=== PATIENT | female | born 1970 | race Caucasian/White ===

== ENCOUNTER → 2021-09-01 08:23 | Outpatient (BNVA) | payer MEDICAID, SELFPAY | PROVIDERS: PCP Nurse Practitioner Family; Visit Provider Nurse Practitioner | DX: D12.6 Benign neoplasm of colon, unspecified (principal); K22.70 Barrett's esophagus without dysplasia; K31.84 Gastroparesis; G40.909 Epilepsy, unspecified, not intractable, without status epilepticus | CPT/HCPCS: 99202 ==

== ENCOUNTER 2021-10-01 12:19 | Day surgery (SDC) | payer MEDICAID, SELFPAY ==
[2021-10-01 12:41] VITALS: BMI 20.3
[2021-10-01 12:51] VITALS: BP 112/66; PULSE 63; RESP 16; TEMP 37.3; O2SAT 99
[2021-10-01] MEDS: Lactated Ringers 1,000 ML 80 ML IVCONT (12:58)
--- NOTE | 2021-10-01 13:27 | HO.ANESPROP2 ---
HPI - Anesthesia Eval Consult details Narrative: 50 F for EGD and colonoscopy last seizure 2018 . occasional absence seizutes , televisit with neurologist 3 weeks ago . PMF Active Problems Active Problems: All Active Problems (Updated 10/01/21 @ 12:40 by Jimena Alford, KEN) Epilepsy (Acute) Asthma (Acute) Hypothyroid (Acute) Menopause (Acute) Chronic abdominal pain (Acute) Gastroparesis (Acute) Low back pain (Acute) GERD (gastroesophageal reflux disease) (Acute) Chronic idiopathic constipation (Acute) Tubular adenoma of colon (Acute) David's esophagus determined by endoscopy (Acute) Past Medical History Medical History (Updated 10/01/21 @ 12:40 by Jimena Alford RN) CVA (cerebral vascular accident) Gastroparesis Hypothyroid Peritoneal adhesions (postoperative) (postinfection) Seizure Torsion of bowel Functional capacity: independent ambulation Family History Family history of problems with anesthesia: No Surgical History Surgical History H/O total hysterectomy History of appendectomy History of section History of cholecystectomy History of colonoscopy with polypectomy History of endoscopy History of Problems with Anesthesia: No Social History Social History Patient Tobacco Use Status: Never used Tobacco Use of substances other than those prescribed or required for medical reasons: Yes Substance Use Frequency: Occasionally Are you DNR?: No Advance Directives: No Advance Directives Information Provided: Yes Meds Allergies Allergy/AdvReac Type Severity Reaction Status Date / Time metoclopramide [From Reglan] Allergy Intermediate Unknown Verified 10/01/21 12:37 Penicillins Allergy Intermediate HIVES Verified 10/01/21 12:37 tramadol [From Ultram] Allergy Intermediate Vomiting Verified 10/01/21 12:37 Active Medications: Current Medications Lactated Ringer's (Lr) 1,000 mls @ 80 mls/hr IVCONT .[id number] JUANCHO Last Admin: 10/01/21 12:58 Dose: 80 mls/hr Documented by: Home Medications Medication Instructions Recorded Confirmed Last Taken Type ibuprofen 200 mg capsule 400 mg PO Q8H 09/01/21 Unknown History lamotrigine 25 mg tablet 25 mg PO BEDTIME 09/01/21 Unknown History levothyroxine 75 mcg tablet 0 mcg PO 09/01/21 Unknown History Exam Exam Date and Time: October 01, 2021 1327 Height,Weight and Vital Signs: Height 5 ft 7 in Weight 58.967 kg Last Vital Signs Temp 99.1 F 10/01/21 12:51 Pulse 63 10/01/21 12:51 Resp 16 10/01/21 12:51 BP 112/66 10/01/21 12:51 Pulse Ox 99 10/01/21 12:51 Airway Mallampati Class: I Neck ROM: Full Loose/Missing/Broken Teeth: Yes (Chipped front teeth ) Assessment and Plan Assessment Anesthesia Assessment: Anesthesia Plan Discussed Final Anesthetic Review Family History of Problems with Anesthesia: No History of Problems with Anesthesia: No NPO: Yes ASA Class: II Patient Risk: Intermediate Anesthetic Plan Anesthetic Plan: MAC: Disposition: Standard PACU
--- NOTE | 2021-10-01 14:16 | MHC.SHP ---
Pre-Procedural Eval Section A Date of Service: 10/01/21 Section B Chief Complaint: benign neoplasm of colon,amaro's esophagus Details of Present Illness: dysphagia, hx of dilation in past Relevant Family History (Specify if Yes): No Relevant Social History: None Present Medications: see Short Stay Collaborative assessment Medical History: Significant History (CVA (cerebral vascular accident) Gastroparesis Hypothyroid Peritoneal adhesions (postoperative) (postinfection) Seizure Torsion of bowel) History of Previous Operations: Relevant previous surgery/procedure and date(s) (H/O total hysterectomy History of appendectomy History of section History of cholecystectomy History of colonoscopy with polypectomy History of endoscopy) Allergies: Allergies Allergy/AdvReac Type Severity Reaction Status Date / Time metoclopramide [From Reglan] Allergy Intermediate Unknown Verified 10/01/21 12:37 Penicillins Allergy Intermediate HIVES Verified 10/01/21 12:37 tramadol [From Ultram] Allergy Intermediate Vomiting Verified 10/01/21 12:37 Review of Systems Sugical H&P ROS: Negative: Constitution, Cardiovascular, Respiratory, Neurological, Psychiatric, Hem-Onc, Allergic/Immunologic, Gastrointestinal, Genitourinary, Musculoskeletal, Integumentary, Endocrine and Eyes/Ears/Nose/Throat Exam Surgical H&P Exam: Normal: HEENT, Normal: Heart, Normal: Lungs, Normal: Extremities, Normal: Abdomen, Normal: Skin and Normal: Neurological Plan Diagnosis/Plan: Unchanged I have reviewed the history and physical and performed a pertinent physical examination on my patient. No changes have occurred unless specified.
--- NOTE | 2021-10-01 14:17 | P.BOP_ITS ---
Brief Operative Note Date of Service: 10/01/21 Pre-op diagnosis: dysphagia, hx of colon polyps Post-op diagnosis: same Procedure: see op note Surgeon: Jacobo Mullen MD Anesthesia: MAC Was an Blood Bank Custodian used for this Procedure?: No Estimated blood loss (mL): 0 Condition: stable Disposition: PACU
--- NOTE | 2021-10-01 14:17 | P.OP_ITS ---
Operative Note Operative Note Date of Service: 10/01/21 Narrative: Operative Information Procedure Description: EGD, Colonoscopy FLEXIBLE TRANSORAL UPPER GASTROINTESTINAL ENDOSCOPY AND COLONOSCOPY PROCEDURE NOTE UPPER ENDOSCOPY Consent: Indications for the procedure and potential complications of bleeding, perforation, reaction to medications and missed diagnosis were discussed with the patient and informed consent was obtained. Instrument: Olympus GIF H 190 J mid size upper endoscope Monitoring: Vital signs and clinical assessment, continuous EKG monitoring, Pulse oximetry, Carbon Dioxide monitoring and blood pressure monitoring were done throughout the procedure. Procedure: The patient was placed in the left lateral decubitis position and pre-procedure medications were administered and a bite block was placed. The endoscope was inserted into the mouth and advanced under direct vision to the third part of duodenum. A careful inspection was made as the upper endoscope was withdrawn including a retroflexed examination of the proximal stomach; Findings and interventions are described below. Findings: Larynx:normal Esophagus: GE junction at 40 cm, diaphragm hiatus at 40 cm, bogginess of GEJ noted with some erythema, bx taken after the GEJ was dilated with ablloon to 16 mm with heme and small tear noted. Proximal esophagus also dilated to about 14 mm, no tear seen. Stomach:Streaky erythema with flecks of blood. Biopsies were obtained. Grade 2 flap valve on retroflexed examination of the cardia. Duodenum: Normal bulb and descending duodenum, bx taken Intervention: Biopsies as noted above, balloon dilation of GEJ with small tear noted. COLONOSCOPY Instrument: Olympus variable stiffness pediatric scope 190L Colonoscopy Monitoring: Vital signs and clinical assessment, continuous EKG monitoring, Pulse oximetry, Carbon Dioxide monitoring and blood pressure monitoring were done throughout the procedure. Colon withdrawal time was 10 minutes. Procedure: The patient was placed in the left lateral decubitis position and pre-procedure medications were administered. After a digital rectal examination of the ano-rectum, the video colonoscope was inserted into the rectum and advanced through the colon to the cecum/TI. The colonoscope was slowly withdrawn in a retrograde panoramic fashion and the colon mucosa was carefully examined including a retroflexed view of the rectum. Findings and interventions are described below. Procedure Difficulty: easy Findings: Terminal Ileum-normal Cecum:normal Ascending Colon: normal Transverse Colon -normal Descending Colon:normal Sigmoid Colon: normal Rectum: Retroflexion with small internal hemorrhoids, grade I, 8-9 mm sessile polyp removed with forceps Anorectum - normal Colon preparation: [place] Bowel Preparation Scale Right colon; 3 Transverse colon: 3 Left colon; 3 (0 = Unprepared colon segment with mucosa not seen due to solid stool that cannot be cleared. 1 = Portion of mucosa of the colon segment seen, but other areas of the colon segment not well seen due to staining, residual stool and/or opaque liquid. 2 = Minor amount of residual staining, small fragments of stool and/or opaque liquid, but mucosa of colon segment seen well. 3 = Entire mucosa of colon segment seen well with no residual staining, small fragments of stool or opaque liquid) Impression and Post Procedure Diagnosis: Endoscopy Findings: esophagitis esophageal stricture gastritis Colonoscopy Findings: internal hemorrhoids polyp Plan: Await Pathology results Repeat Colonoscopy in 5-7 years due to hx of polyps or earlier if clinically indicated High fiber diet leaflet avoid straining at stool, epsom salts and sitz bath, anusol supps or cream cont with PPI Above findings were reviewed with the patient and relevant handouts were provided if indicated.
[2021-10-01 15:21] VITALS: BP 107/69; PULSE 83; RESP 14; TEMP 36.1; O2SAT 98
[2021-10-01 15:36] VITALS: BP 111/70; PULSE 63; RESP 16; TEMP 36.3; O2SAT 100
== END 2021-10-01 16:04 | disposition home or self-care (01) ==
PROVIDERS: PCP Physician Assistant Medical; Visit Provider Internal Medicine Gastroenterology
PROC: (CPT 45380; principal; 2021-10-01 13:40)
DX: Z12.11 Encounter for screening for malignant neoplasm of colon (principal); Z86.010 Personal history of colon polyps; K64.0 First degree hemorrhoids; K62.1 Rectal polyp; K59.00 Constipation, unspecified; K22.70 Barrett's esophagus without dysplasia; K22.2 Esophageal obstruction; K29.50 Unspecified chronic gastritis without bleeding; K20.80 Other esophagitis without bleeding; K21.9 Gastro-esophageal reflux disease without esophagitis; K44.9 Diaphragmatic hernia without obstruction or gangrene; K31.84 Gastroparesis; K66.0 Peritoneal adhesions (postprocedural) (postinfection); G40.909 Epilepsy, unspecified, not intractable, without status epilepticus; J45.909 Unspecified asthma, uncomplicated; E03.9 Hypothyroidism, unspecified; Z79.1 Long term (current) use of non-steroidal anti-inflammatories (NSAID); Z88.0 Allergy status to penicillin; Z79.899 Other long term (current) drug therapy; Z88.8 Allergy status to other drugs, medicaments and biological substances; Z90.49 Acquired absence of other specified parts of digestive tract; Z86.73 Personal history of transient ischemic attack (TIA), and cerebral infarction without residual deficits
CPT/HCPCS: 45380; 43249; 43239; 88305; 88342; C1726; J2250

== ENCOUNTER → 2021-11-20 11:06 | Outpatient (BNVA) | payer MEDICAID, SELFPAY | PROVIDERS: PCP Physician Assistant Medical; Referring Provider Physician Assistant Medical; Visit Provider Internal Medicine Gastroenterology | DX: K21.9 Gastro-esophageal reflux disease without esophagitis (principal); K22.70 Barrett's esophagus without dysplasia; G89.29 Other chronic pain; R10.9 Unspecified abdominal pain | CPT/HCPCS: 99212 ==

== ENCOUNTER → 2022-06-25 09:58 | Outpatient (BNVA) | payer MEDICAID, SELFPAY | PROVIDERS: PCP Physician Assistant Medical; Visit Provider Internal Medicine Gastroenterology | DX: R13.10 Dysphagia, unspecified (principal); K21.00 Gastro-esophageal reflux disease with esophagitis, without bleeding; K59.00 Constipation, unspecified; R10.10 Upper abdominal pain, unspecified | CPT/HCPCS: 99212 ==

== ENCOUNTER → 2023-04-04 12:50 | Outpatient (BNVA) | payer MEDICAID, SELFPAY | PROVIDERS: PCP Physician Assistant Medical; Visit Provider Internal Medicine Gastroenterology | DX: K21.9 Gastro-esophageal reflux disease without esophagitis (principal); R13.10 Dysphagia, unspecified | CPT/HCPCS: 99212 ==

== ENCOUNTER 2024-04-23 09:29 | Outpatient (AMB) | payer OTHER, SELFPAY ==
--- NOTE | 2024-04-23 09:32 | A.OFFVIS_ITS ---
Vital Signs 04/23/24 09:33 Height 5 ft 7 in Weight 132 lb 4.438 oz BMI 20.7 BP 103/56 L Blood Pressure Location Lt brachial Position Sitting Pulse 60 Intake Visit Reasons: Dysphagia Intake Note: Monserrat presents in the office as a follow up. CC: Denies trouble swallowing. She states that it happens very rarely She states that it feels like something or part of her throat gets stuck - it happens on both sides. It is a sharp intense pain and she will be unable to swallow. She will be unable to talk - it goes 1-2 swallows and then it will go away. The last time she states the left side of her face went numb. She feels is occurs more on the left side. Gas Or Water Meter Installer Required: No Allergies metoclopramide [From Reglan] Allergy (Intermediate, Verified 04/23/24 09:33) Unknown Penicillins Allergy (Intermediate, Verified 04/23/24 09:33) HIVES tramadol [From Ultram] Allergy (Intermediate, Verified 04/23/24 09:33) Vomiting HPI HPI Dysphagia: Details: 53 yr old f here for f/u RECAP: Hx of dysphagia ba swallow with pill held at GEJ She has not had an EGD for many years despite SSBE She says she has an extensive history of adhesions after her hysterectomy with revision surgeries and intestinal tortions. She has a hx of colon polyps, her last being about 6 years ago. I did EGD, colonoscopy 09/2021 Endoscopy Findings: esophagitis esophageal stricture gastritis Colonoscopy Findings: internal hemorrhoids polyp bx with chronic moderate inflammation at GEJ, hyperplastic polyp INTERIM: she has been having issues maybe 3-4 times a year usu in the morning if she yawns and turns her head at certain angle, she feels like something is stuck and she gets a sharp pain --puts her on the floor every time she swallows she gets the sharp pain, sometimes goes away with swallowing she gets pressure and numbness last attack was maybe 6 months she has not had treatment for pit tumor as too small? she has been told she has no seizure d/o, taken off meds she denies neck pain or stiffness bowel habit is normal acid reflux is bad, cant take lansoprazole as they are too big -she feels they made her stomach hurt more she has LUQ pain, has had adhesions in the past, like a pulling sensation she has noted some issues with swallowing, food, dilation helped in past EXAM: GENERAL: The patient is well developed and nontoxic. VITAL SIGNS:see workflow HEENT: Nonicteric sclerae, PERRLA, EOMI. Oropharynx clear. Moist mucous membranes. Conjunctivae appear well perfused. No thyroid mass. CHEST: Chest wall is nontender. HEART: Regular rate and rhythm without murmurs. LUNGS: Clear to auscultation bilaterally. ABDOMEN: Soft, positive bowel sounds, nontender, no organomegaly.no flank tenderness SKIN: No rash, no excessive bruising, petechiae, or purpura. NEUROLOGIC: Cranial nerves II-XII intact without motor/sensory deficit. a/P: 1/ dysphagia, getting worse, prob from PPI non compliance 2/ facial numbness attacks when turning neck, ?mechanical issues with neck 3/ LUQ pain, possibly from adhesions in the past PLAN: // try ODT lansoprazole 2/ EGD with balloon dilation 3/ MR c spine 4/ trial of levsin for LUQ pain PFSH Medical History (Updated 04/23/24 @ 10:11 by Jacobo Mullen MD) Hx of pituitary neoplasm Seizure Hypothyroid Gastroparesis CVA (cerebral vascular accident) Peritoneal adhesions (postoperative) (postinfection) Torsion of bowel Surgical History History of appendectomy History of section History of cholecystectomy H/O total hysterectomy History of endoscopy History of colonoscopy with polypectomy Family History Mother Breast cancer Father Lung cancer High cholesterol Heart problem Maternal Grandmother Pituitary tumor Social History Patient Tobacco Use Status: Never used Tobacco Physical Exam Vital Signs: Last Vital Signs Pulse 60 04/23/24 09:33 BP 103/56 L 04/23/24 09:33 BMI result Body Mass Index 20.7 Assessment & Plan Assessment & Plan (1) Neck pain: Code(s): M54.2 - Cervicalgia Category: Medical Plan: see above Orders: Orders MR cervical spine wo con Today M54.2 - Cervicalgia Medications: New lansoprazole 30 mg PO DAILY 30 tabs 1RF hyoscyamine sulfate 0.125 mg PO BID-QID PRN 30 tabs 1RF dyspepsia Coding Level of Care Code Est Pt Level 4 (72653) Diagnoses Neck pain M54.2
[2024-04-23 09:33] VITALS: BP 103/56; PULSE 60; BMI 20.7
== END 2024-04-23 10:18 | disposition home or self-care (01) ==
PROVIDERS: PCP Physician Assistant Medical; Visit Provider Internal Medicine Gastroenterology
DX: M54.2 Cervicalgia (principal)
CPT/HCPCS: 99214

== ENCOUNTER → 2024-04-23 09:29 | Outpatient (BNVA) | payer OTHER, SELFPAY | PROVIDERS: PCP Physician Assistant Medical; Visit Provider Internal Medicine Gastroenterology ==

== ENCOUNTER 2024-08-30 08:02 | Day surgery (SDC) | payer OTHER, SELFPAY ==
[2024-08-28 16:10] VITALS: BMI 20.7
[2024-08-29 09:46] VITALS: BMI 21.1
--- NOTE | 2024-08-29 10:40 | HO.ANESPROP2 ---
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 (Acute) Tubular adenoma of colon (Acute) Chronic idiopathic constipation (Acute) GERD (gastroesophageal reflux disease) (Acute) Low back pain (Acute) Gastroparesis (Acute) Chronic abdominal pain (Acute) Menopause (Acute) Hypothyroid (Acute) Asthma (Acute) Epilepsy (Acute) Past Medical History Medical History Low BP Bradycardia Neck pain Back pain History of epilepsy Hx of pituitary neoplasm Seizure Hypothyroid Gastroparesis CVA (cerebral vascular accident) (~2016) Peritoneal adhesions (postoperative) (postinfection) Torsion of bowel Family History Family History Mother Breast cancer Father Lung cancer High cholesterol Heart problem Maternal Grandmother Pituitary tumor Family history of problems with anesthesia: No Surgical History Surgical History Hx of exploratory laparotomy (~2016) History of loop electrical excision procedure (LEEP) (~2016) Hx of BSO (bilateral salpingo-oophorectomy) (~2016) History of appendectomy (~2016) History of section History of cholecystectomy (~2016) H/O total hysterectomy (~2017) History of endoscopy (10/01/21) History of colonoscopy with polypectomy History of Problems with Anesthesia: No Social History Social History Are you a primary career development associate to a significant other at home: No Do you presently have visiting nurse or other home services: No Patient Tobacco Use Status: Never used Tobacco Use of substances other than those prescribed or required for medical reasons: Yes Substance Use Frequency: Weekly Have you been hit, kicked, punched, or otherwise hurt by someone within the past year? If so, by whom?: No Are you DNR?: No Advance Directives: No (Has one, if available will bring DOS) Advance Directives Information Provided: Yes Advance Directives on File: No Recently lost weight without trying: No Nutrition Risks: Difficulty swallowing Patient : No FDLMP: hx hysterectomy Poor oral hygiene: No Meds Allergies Allergy/AdvReac Type Severity Reaction Status Date / Time Penicillins Allergy Intermediate HIVES Verified 08/30/24 09:00 tramadol [From Ultram] Allergy Intermediate Vomiting Verified 08/30/24 09:00 metoclopramide [From Reglan] AdvReac Intermediate Tardive Verified 08/30/24 09:00 Dyskinesia Home Medications ?Medication ?Instructions ?Recorded ?Confirmed ?Last Taken ?Type calcium carbonate (Tums Extra 300 mg PO BID 08/29/24 08/29/24 Unknown History Strength Smoothies) levothyroxine 75 mcg tablet 75 mcg PO BEDTIME 08/29/24 08/29/24 Unknown History (Synthroid) Exam Height,Weight and Vital Signs: Height 5 ft 7 in Weight 61.235 kg Assessment and Plan Assessment Anesthesia Assessment: Chart Reviewed Final Anesthetic Review Family History of Problems with Anesthesia: No History of Problems with Anesthesia: No Documented by User: Herrera Cruz MD 08/30/24 10:22 PMFSH Past Medical History Medical History Low BP Bradycardia Neck pain Back pain History of epilepsy Hx of pituitary neoplasm Seizure Hypothyroid Gastroparesis CVA (cerebral vascular accident) (~2015) Peritoneal adhesions (postoperative) (postinfection) Torsion of bowel Family History Family History Mother Breast cancer Father Lung cancer High cholesterol Heart problem Maternal Grandmother Pituitary tumor Surgical History Surgical History Hx of exploratory laparotomy (~2015) History of loop electrical excision procedure (LEEP) (~2016) Hx of BSO (bilateral salpingo-oophorectomy) (~2016) History of appendectomy (~2016) History of section History of cholecystectomy (~2016) H/O total hysterectomy (~2017) History of endoscopy (10/01/21) History of colonoscopy with polypectomy Social History Social History Are you a primary career development associate to a significant other at home: No Do you presently have visiting nurse or other home services: No Patient Tobacco Use Status: Never used Tobacco Use of substances other than those prescribed or required for medical reasons: Yes Substance Use Frequency: Weekly Have you been hit, kicked, punched, or otherwise hurt by someone within the past year? If so, by whom?: No Are you DNR?: No Advance Directives: No (Has one, if available will bring DOS) Advance Directives Information Provided: Yes Advance Directives on File: No Recently lost weight without trying: No Nutrition Risks: Difficulty swallowing Patient : No FDLMP: hx hysterectomy Poor oral hygiene: No Meds Allergies Allergy/AdvReac Type Severity Reaction Status Date / Time Penicillins Allergy Intermediate HIVES Verified 08/30/24 09:00 tramadol [From Ultram] Allergy Intermediate Vomiting Verified 08/30/24 09:00 metoclopramide [From Reglan] AdvReac Intermediate Tardive Verified 08/30/24 09:00 Dyskinesia Home Medications ?Medication ?Instructions ?Recorded ?Confirmed ?Last Taken ?Type calcium carbonate (Tums Extra 300 mg PO BID 08/29/24 08/29/24 Unknown History Strength Smoothies) levothyroxine 75 mcg tablet 75 mcg PO BEDTIME 08/29/24 08/29/24 Unknown History (Synthroid) Exam Airway Mallampati Class: I TM Dist: >3cm Neck ROM: Full Loose/Missing/Broken Teeth: No Heart: ok Lungs: ok Assessment and Plan Assessment Anesthesia Assessment: Anesthesia Plan Discussed Final Anesthetic Review NPO: Yes ASA Class: III Final Preanesthetic Review: No Changes in Pt Med Stat, Meds/Allgs Chart Reviewed, Consent Obtained/Reviewed and Anes Risks/Benef Reviewed Patient Risk: Intermediate Procedure Risk: Intermediate Anesthetic Plan Anesthetic Plan: Agree w/ Assess. and Plan and TIVA Disposition: Standard PACU
[2024-08-30] MEDS: Lactated Ringers 1,000 ML 100 ML IVCONT (09:04)
--- NOTE | 2024-08-30 09:36 | MHC.SHP ---
Pre-Procedural Eval Section A - 24 Hr Update-Section A only Date of Service: 08/30/24 Section B - Complete if H&P > 30 days Chief Complaint: dysphagia Relevant Family History (Specify if Yes): No Relevant Social History: None Present Medications: see Short Stay Collaborative assessment Medical History: Significant History (Hx of pituitary neoplasm Seizure Hypothyroid Gastroparesis CVA (cerebral vascular accident) Peritoneal adhesions (postoperative) (postinfection) Torsion of bowel) History of Previous Operations: Relevant previous surgery/procedure and date(s) (History of appendectomy History of section History of cholecystectomy H/O total hysterectomy History of endoscopy History of colonoscopy with polypectomy) Allergies: Allergies Allergy/AdvReac Type Severity Reaction Status Date / Time Penicillins Allergy Intermediate HIVES Verified 08/30/24 09:00 tramadol [From Ultram] Allergy Intermediate Vomiting Verified 08/30/24 09:00 metoclopramide [From Reglan] AdvReac Intermediate Tardive Verified 08/30/24 09:00 Dyskinesia Review of Systems Sugical H&P ROS: Negative: Constitution, Cardiovascular, Respiratory, Neurological, Psychiatric, Hem-Onc, Allergic/Immunologic, Gastrointestinal, Genitourinary, Musculoskeletal, Integumentary, Endocrine and Eyes/Ears/Nose/Throat Exam Surgical H&P Exam: Normal: HEENT, Normal: Heart, Normal: Lungs, Normal: Extremities, Normal: Abdomen, Normal: Skin and Normal: Neurological Plan Diagnosis/Plan: Unchanged I have reviewed the history and physical and performed a pertinent physical examination on my patient. No changes have occurred unless specified. Time Spent With Patient Time: Total time managing care of this patient today ____ minutes.
--- NOTE | 2024-08-30 10:46 | W.PM.OPN ---
Operative Note Operative Note Date of Service: 08/30/24 Narrative: Procedure Description: EGD Indication: dysphagia Anesthesia: MAC FLEXIBLE TRANSORAL UPPER GASTROINTESTINAL ENDOSCOPY UPPER ENDOSCOPY Consent: Indications for the procedure and potential complications of bleeding, perforation, reaction to medications and missed diagnosis were discussed with the patient and informed consent was obtained. Instrument: Olympus GIF H 190 J mid size upper endoscope Monitoring: Vital signs and clinical assessment, continuous EKG monitoring, Pulse oximetry, Carbon Dioxide monitoring and blood pressure monitoring were done throughout the procedure. Procedure: The patient was placed in the left lateral decubitis position and pre-procedure medications were administered and a bite block was placed. The endoscope was inserted into the mouth and advanced under direct vision to the third part of duodenum. A careful inspection was made as the upper endoscope was withdrawn including a retroflexed examination of the proximal stomach; Findings and interventions are described below. Findings: Larynx:normal Esophagus: GE junction at 42 cm, diaphragm hiatus at 44 cm, patchy erythema, bx taken from distal and proximal esophagus, tight schatzki ring noted, dilated with balloon to 18 then 19 mm with superficial tear seen - 2 cm hiatal hernia noted--UES dilated to 18 mm with superficial tear noted Stomach: patchy erythema with bile acid refluxate noted . Biopsies were obtained. Grade 2 flap valve on retroflexed examination of the cardia. Duodenum: Normal bulb and descending duodenum, Intervention: Biopsies as noted above, balloon dilation Impression/Findings: gastritis and bile acid reflux schatzki ring hiatal hernia PLAN: check if taking PPI-if not needs to commence GERD precautions
[2024-08-30 10:53] VITALS: BP 114/68; PULSE 77; RESP 18; TEMP 37.1; O2SAT 96
[2024-08-30 11:08] VITALS: BP 107/49; PULSE 60; RESP 18; TEMP 37.5; O2SAT 99
[2024-08-30] MEDS: Ondansetron ODT 4 MG TAB.RAPDIS TRANSLINGU (11:55)
--- NOTE | 2024-08-30 11:58 | PC.NURSE ---
PATIENT FEELING A LITTLE DIZZY AND NOW NAUSEOUS POST UPPER ENDOSCOPY. OBTAINED AN ORDER FOR ZOFRAN AND GIVEN SL TO PATIENT.
--- NOTE | 2024-08-30 12:13 | PC.NURSE ---
PATIENT STATES FEELING MUCH BETTER AFTER ZOFRAN GIVEN. PATIENT ABLE TO STAND AND WALK WITH DIFFICULTY. STATES DIZZINESS MUCH BETTER. PATIENT DC'D HOME WITH HER SO.
== END 2024-08-30 12:15 | disposition home or self-care (01) ==
PROVIDERS: PCP Physician Assistant Medical; Visit Provider Internal Medicine Gastroenterology
PROC: (CPT 43249; principal; 2024-08-30 10:50)
DX: R13.10 Dysphagia, unspecified (principal); R20.0 Anesthesia of skin; K22.2 Esophageal obstruction; K44.9 Diaphragmatic hernia without obstruction or gangrene; K31.84 Gastroparesis; K66.0 Peritoneal adhesions (postprocedural) (postinfection); R10.12 Left upper quadrant pain; K29.60 Other gastritis without bleeding; R56.9 Unspecified convulsions; E03.9 Hypothyroidism, unspecified; Z79.899 Other long term (current) drug therapy; Z88.0 Allergy status to penicillin; Z88.8 Allergy status to other drugs, medicaments and biological substances; Z86.73 Personal history of transient ischemic attack (TIA), and cerebral infarction without residual deficits; Z98.890 Other specified postprocedural states
CPT/HCPCS: 43249; 43239; 88305; C1726; J2003; J2704

== ENCOUNTER → 2024-08-30 08:02 | Outpatient (BNV) | payer OTHER, SELFPAY | PROVIDERS: PCP Physician Assistant Medical; Visit Provider Internal Medicine Gastroenterology | DX: K22.2 Esophageal obstruction (principal); K29.70 Gastritis, unspecified, without bleeding; K21.9 Gastro-esophageal reflux disease without esophagitis | CPT/HCPCS: 43239; 43249 ==

== ENCOUNTER → 2024-11-12 10:42 | Outpatient (BNVA) | payer OTHER, SELFPAY | PROVIDERS: PCP Physician Assistant Medical; Visit Provider Internal Medicine Gastroenterology ==

== ENCOUNTER 2025-04-01 12:21 | Outpatient (AMB) | payer OTHER, SELFPAY ==
--- NOTE | 2025-04-01 12:40 | A.OFFVIS_ITS ---
Vital Signs 04/01/25 12:42 Height 5 ft 7 in Weight 136 lb BMI 21.3 BP 96/60 Blood Pressure Location Rt brachial Position Sitting Pulse 66 Pulse Source Pulse Oximeter Pulse Oximetry (%) 99 Oxygen Delivery Method Room Air Intake Visit Reasons: f/u dysphagia Intake Note: Est pt for mgmt of GERD, dysphagia, + David's. CC; C.O. adverse reaction to the lansoprazole. Pt states that, although it worked very well for controlling the GERD / David's, pt experienced severe diarrhea and was unable to leave her house if she took the medication. Pt is hoping for either an alternative or a way to manage the chronic, severe diarrhea type adverse reaction. Sand Operator Required: No Accompanied by: Self / Same As Patient Allergies Penicillins Allergy (Intermediate, Verified 04/01/25 12:41) HIVES tramadol (From Ultram) Allergy (Intermediate, Verified 04/01/25 12:41) Vomiting metoclopramide (From Reglan) Adverse Reaction (Intermediate, Verified 04/01/25 12:41) Tardive Dyskinesia HPI HPI f/u dysphagia: Details: 54 yr old f here for f/u RECAP: Hx of dysphagia ba swallow with pill held at [facility] She has not had an EGD for many years despite SSBE She says she has an extensive history of adhesions after her hysterectomy with revision surgeries and intestinal tortions. She has a hx of colon polyps, her last being about 6 years ago. I did EGD, colonoscopy 09/2021 Endoscopy Findings: esophagitis esophageal stricture gastritis Colonoscopy Findings: internal hemorrhoids polyp bx with chronic moderate inflammation at [facility], hyperplastic polyp EGD 09/02 Impression/Findings: gastritis and bile acid reflux schatzki ring hiatal hernia balloon dilation with tear of schatzki ring INTERIM: lansoprazole has been effective but gives her diarrhea she is otherwise well no n/v no abdominal pain appetite is good no swallowing issues EXAM: GENERAL: The patient is well developed and nontoxic. VITAL SIGNS:see workflow HEENT: Nonicteric sclerae, PERRLA, EOMI. Oropharynx clear. Moist mucous me mbranes. Conjunctivae appear well perfused. No thyroid mass. CHEST: Chest wall is nontender. HEART: Regular rate and rhythm without murmurs. LUNGS: Clear to auscultation bilaterally. ABDOMEN: Soft, positive bowel sounds, nontender, no organomegaly.no flank tenderness SKIN: No rash, no excessive bruising, petechiae, or purpura. NEUROLOGIC: Cranial nerves II-XII intact without motor/sensory deficit. a/P: 1/ dysphagia, has been better, but intolerant of lansoprazole PLAN: /1/ try dexilant 2/ EGD with balloon dilation prn 3/ she is having sinus congestion, waiting to see ENT [facility] Medical History Low BP Bradycardia Neck pain Back pain History of epilepsy Hx of pituitary neoplasm Seizure Hypothyroid Gastroparesis CVA (cerebral vascular accident) (~2016) Peritoneal adhesions (postoperative) (postinfection) Torsion of bowel Surgical History Hx of exploratory laparotomy (~2015) History of loop electrical excision procedure (LEEP) (~2015) Hx of BSO (bilateral salpingo-oophorectomy) (~2015) History of appendectomy (~2015) History of section History of cholecystectomy (~2015) H/O total hysterectomy (~2017) History of endoscopy (10/01/21) History of colonoscopy with polypectomy Family History Mother Breast cancer Father Lung cancer High cholesterol Heart problem Maternal Grandmother Pituitary tumor Social History Are you a primary direct care counselor to a significant other at home: No Do you presently have visiting nurse or other home services: No Patient Tobacco Use Status: Never used Tobacco Physical Exam Vital Signs: Last Vital Signs Pulse 66 04/01/25 12:42 BP 96/60 04/01/25 12:42 Pulse Ox 99 04/01/25 12:42 Oxygen Delivery Method Room Air 04/01/25 12:42 BMI result Body Mass Index 21.3 Assessment & Plan Assessment & Plan (1) Dysphagia: Code(s): R13.10 - Dysphagia, unspecified Category: Medical Plan: as above Medications: New dexlansoprazole (Dexilant) 30 mg PO DAILY 90 caps 2RF Coding Level of Care Code Est Pt Level 3 (65854) Diagnoses Dysphagia R13.10
[2025-04-01 12:42] VITALS: BP 96/60; PULSE 66; O2SAT 99; BMI 21.3
--- OUTSIDE RECORDS SUMMARY | 2025-04-01 13:43 | XMS_ITS | Data Portability ---
Author Organization [facility] Address [address] [address] Care Team Providers Care Partnership Development Manager Name Role Phone ANUM KAUR Primary Care Provider [phone] Assessment No assessment recorded. Plan of Treatment Reminders Order Date Submit Date Provider Last Modified By Organization Details Last Modified Time Details Appointments None recorded. Lab None recorded. Referral None recorded. Procedures None recorded. Surgeries None recorded. Imaging None recorded. Medication Orders Zofran 4 mg tablet 2015 016 ori [facility], [address] [place] [address], [address], 6 13:35:24 Reglan 10 mg tablet 2015 016 maribelli [facility], [address] [place] [address], [address], 6 13:35:24 Valium 10 mg tablet 2014 015 asya [facility], [address] [place] [address], [address], 6 14:29:09 belladonn a alkaloids -opium 16.2 mg-60 mg rectal supposito ry 2014 Quang rehman [facility], [address] [place] [address], [address], 6 13:35:23 Bactrim DS 800 mg-160 mg tablet 2014 015 asya [facility], [address] [place] [address], [address], 5 13:35:25 cyclobenz aprine 10 mg tablet 2014 Quang echavarria [address], [address], 5 14:41:07 Estrace 1 mg tablet 2014 Quang sky [address], [address], 5 13:35:25 Patient TargetsNo targets recorded. Patient InstructionsNo instructions recorded. Reason for Referral None Reported. Results Created Date Observation Date Name Description Value Unit Range Abnormal Flag Note LastModifiedBy Organization Detail LastModifiedTime 07/23/20 15 07/23/2015 surgi anshu patho logy study surgical specimens See Altaf ts ----- ----- ----- ----- ----- ----- ----- ----- ----- ----- ----- ----- ----- ----- ----- ----- ----- ----- -- RUN DATE: 07/30 [place] [address] PAGE 1 RUN TIME: 1105 Speci minh Alanisi ry RUN USER: VIJAY ARVIZU ----- ----- ----- ----- ----- ----- ----- ----- ----- ----- ----- ----- ----- ----- ----- ----- ----- ----- -- LAYLA NT: WU ARZOLA 598 LOC: [facility] U #: [id number] AGE/S X: 44/F ROOM: RE07/[address]: Tiffani hicks M.D., Tee balderas DOB: [birth year] BED: DIS: STATU S: DEP [facility] TLOC: ----- ----- ----- ----- ----- ----- ----- ----- ----- ----- ----- ----- ----- ----- ----- ----- ----- ----- -- SPEC #: [id number] RECD: 07/24 926 STATU S: SOUT REQ #: [id number] VERITO: 07/23- DR: Tiffani hicks M.D., [facility] ENTER ED: 07/24 929 SP TYPE: SURG OTHR DR: Alesha Chinchilla, Chang Logan ORDER ED: H&E, ARIANNE ROUTI NE, MULTI (5)/3 , SMALL (4), MMULT C TISSU ES: 1. Pelvi c NOS - LEFT PELVI C SIDEW ALL AND ANTER IOR BLADD ER FLAP 2. MISCE LLANE OUS - RIGHT UROSA CRAL 3. Pelvi c NOS - LEFT PELVI C RIM 4. APPEN SALVADOR FINAL DIAGN OSIS 1. Left pelvi c sidew all and anter ior bladd er flap - React brian lymph node and benig n fibro fatty tissu e; no endom etrio sis is ident ified 2. Right utero sacra l - Foci mandy tible with endom etrio sis, with hemor rhage , calci ficat ions, granu lomat ous histi ocyte react ion, and fibro sis 3. Left pelvi c rim - Benig n fibro fatty tissu e; no endom etrio sis is ident ified 4. Appen salvador - Vermi form appen salvador with peria ppend iceal fibro sis mandy tible with adhes ions, and a tiny focus sugge stive of endom etrio sis. GROSS DESCR IPTIO N PREOP ERATI VE DIAGN OSIS: Endom etrio sis CLINI ANSHU HISTO RY: OPERA TION: Lapar oscop ic ablat ion excis ion of endom etrio sis SPECI MENS: 1 left pelvi c sidew all and anter ior bladd er flap, 2 right utero sacra l, 3 left pelvi c rim, 4 appen salvador POSTO PERAT BRIAN DIAGN OSIS: Same 1. Recei gibran fresh label ed left pelvi c sidew all and anter ior bladd er flap to 5.3 x 0.5 cm aggre gate of pink- leger soft tissu e fragm ents. No suhail s, nodul es, or lesio ns are ident ified gross ly. Repre senta tive secti ons are submi tted in casse tte 1-1. 2. Recei gibran fresh label ed righ t uro-s acral is a 4 x 1.7 x 0.3 [address]gre gate of leger soft tissu e fragm ents. No suhail s, nodul es, ravinder ion throu gh dense white gross ly. The entir e speci men is submi tted in [place] ttes 2-1 and 2-2. CHELSEY NUED ON NEXT PAGE ----- ----- ----- ----- ----- ----- ----- ----- ----- ----- ----- ----- ----- ----- ----- ----- ----- ----- -- RUN DATE: 07/30 [place] [address] PAGE 2 RUN TIME: 1105 Speci men Inqui ry RUN USER: VIJAY ARVIZU ----- ----- ----- ----- ----- ----- ----- ----- ----- ----- ----- ----- ----- ----- ----- ----- ----- ----- -- SPEC #: [id number] PATIE NT: WU ARZOLA #[id number] (Cont inued ) ----- ----- ----- ----- ----- ----- ----- ----- ----- ----- ----- ----- ----- ----- ----- ----- ----- ----- -- GROSS DESCR IPTIO N (Cont inued ) 3. Recei gibran fresh label ed left pelvi c rim is a 3 x 2.5 x 0.2 [address] gate of pink- leger, membr anous soft tissu e fragm ents. No suhail s, nodul es, or lesio ns are ident ified gross ly. The entir e speci men is submi tted in casse tte 3-1. 4. Recei gibran fresh label ed appe ndix is a 4.5 cm in lengt h x 0.[address] pink- leger, vermi form appen salvador with open proxi mal end and a moder ate amoun t of attac hed adipo se tissu e. The seros a is pink- leger and farhat h. Secti oning revea ls a pink- leger, glist ening lumen and wall thick ness 0.3 cm. No suhail s, nodul es or lesio ns are ident ified gross ly. Repre senta tive secti ons (to inclu de inked proxi mal [place] n and one half of bisec jason tip) are submi tted from proxi mal to dista l in casse ttes 4-1 and 4-2. JDB 07/24 COPIE S TO: Alesha Chinchilla, Chang Logan [address] [place] [address] [phone] Tiffani hicks M.D., Tee [address], [address] [place] [address] [phone] ----- ----- ----- ----- ----- ----- ----- ----- ----- ----- ----- ----- ----- ----- ----- ----- ----- ----- -- Melody Rodarte MD,JOEY HERNANDEZA 07/28 1102 ----- ----- ----- ----- ----- ----- ----- ----- ----- ----- ----- ----- ----- ----- ----- ----- ----- ----- -- END OF REPOR T Not Available [facility] [address] [place], [address], 07/30/2015 11:05:41 Result Notes None recorded. Problems Name Problem SNOMED Code Status Onset Date Resolution Date Notes Provider Name and Address Organization Details Recorded Time History of calculus of kidney 924301915 Active Nikky andujar [facility] 11:51:26 Endometriti s 93752475 Completed 07/05/2015 Nikky andujar [facility] 11:51:26 Migraine 01168152 Active Nikky [facility] 11:51:26 Hernia of abdominal cavity 07605621 Active Nikky andujar [facility] 11:51:26 Lower back injury 539899237 Active discs Nikky andujar [facility] 11:51:26 Hypothyroid ism 06864604 Active Nikky andujar [facility] 11:51:26 David's esophagus with esophagitis 088945273 Active Nikky andujar [facility] 11:51:26 Asthma 119191706 Active Nikky andujar [facility] 6 11:51:26 Gallstone 295932319 Active Nikky andujar [facility] 6 11:51:26 Depressive disorder 64195389 Active Nikky andujar [facility] 6 11:51:26 Endometrios is Active Nikky andujar [facility] 6 11:51:26 Low back pain 472215652 Active 2004 Nikky andujar, [facility] 6 11:51:26 Generalized anxiety disorder 24287211 Active 2007 Nikky [facility]ujar [facility] 6 11:51:26 Endometrios is (clinical) 332829586 Active 2003 Nikky andujar [facility] 6 11:51:26 Irritable bowel syndrome 77596061 Active 2004 Nikky andujar [facility] 6 11:51:26 Problem Notes None recorded. Procedures Surgical History Date Name Laterality Status Provider Name and Address Organization Details Recorded Time 07/23/20 15 Laparoscopy completed Keith Osuna MD [address] [place], [address], [facility] 08/16/2015 18:54:11 05/16/20 13 Oophorectomy completed Radha Bhandari [facility] 06/27/2015 15:45:55 12/09/19 13 Laparoscopy completed Radha Bhandari [facility] 06/27/2015 15:45:55 03/17/20 12 Hysterectomy completed Radha Bhandari [facility] 06/27/2015 15:45:55 10/10/18 96 Laparoscopy [facility] 06/27/2015 15:45:55 07/20/19 91 Section completed Radha Bhandari [facility] 06/27/2015 15:46:21 Imaging Results None recorded. Procedure Notes None recorded. Medical Equipment None Reported. Allergies Allergen ID Allergen Name Allergen Category Reaction Reaction Severity Criticality Documentation Date Start Date Code Code System Note Provider Name and Address Organization Details Recorded Time 439011 Product containin g penicilli n (product) medicatio n hives Not available Not available 06/27/2015 21297 8001 SNOMED Radha andujar [facility] 5 15:45:55 325371 Ultram medicatio n vomiting Not available Not available 06/27/2015 42791 6 RxNorm [facility] 5 15:45:55 Medications Name Sig Start Date Stop Date Status Note LastModified by Organization Details LastModified Time levothyroxine sodium 50 mcg tabs active Not Available Not Available Not Available sumatriptan succinate 50 mg tabs active Not Available Not Available Not Available hydrocodone/ac etaminophen 5-325 mgtabs active Not Available Not Available Not Available oxycodone hcl 5 mg tabs active Not Available Not Available No t Available petey fe 10/29 1-20 mg-mcg tabs active Not Available Not Available Not Available norethindrone acetate 5 mg tabs active Not Available Not Available Not Available cyclobenzaprin e 10 mg tablet Take 1 tablet 3 times a day by oral route. active Not Available Not Available No t Available Stool Softener 100 mg capsule active Not Available Not Availab le Not Available ranitidine 300 mg tablet active Not Available Not Available No t Available hydrocodone 5 mg-acetaminoph en 325 mg tablet 3 times a day by oral route. active Not Available Not Available No t Available ondansetron HCl 4 mg tablet active Not Available Not Available Not Available sumatriptan 50 mg tablet active Not Available Not Available No t Available acetaminophen 300 mg-codeine 30 mg tablet active Not Available Not Available Not Available sulfamethoxazo le 800 mg-trimethopri m 160 mg tablet Take 1 tablet every 12 hours by oral route for 7 days. active Not Available Not Available No t Available omeprazole 40 mg capsule,delaye d release active Not Available Not Available No t Available Zantac 150 mg tablet Take 1 tablet twice a day by oral route. active Not Available Not Available No t Available hydromorphone 2 mg tablet active Not Available Not Available Not Available estradiol 1 mg tablet Take 1 tablet(s) every day by oral route. 2016 active Not Available Not Available Not Avai lable levothyroxine 50 mcg tablet TAKE 1 TABLET BY MOUTH EVERY DAY active Not Available Not Available No t Available misoprostol 200 mcg tablet Take 2 tablet(s) by mouth now and repeat in 1 hour active Not Available Not Available No t Available diazepam [address] 1 tablet high in the vagina every 12 hours for pelvic muscle spasm active Not Available Not Available No t Available belladonna alkaloids-opiu m 16.2 mg-60 mg rectal suppository Insert by rectal route once a day for pelvic muscle spasm. active Not Available Not Available No t Available metoclopramide 10 mg tablet Take 1 tablet(s) every 8 hrs for nausea. active Not Available Not Available No t Available oxycodone 5 mg tablet TAKE 1/2 TABLET (2.5 MG) BY ORAL ROUTE EVERY 8 HOURS NEEDED FOR 28 DAYS active Not Available Not Available No t Available levothyroxine 50 MCG active Not Available Not Available Not Available Imitrex 50 MG PRN active Not Available Not Av ailable Not Available Percocet active Not Available Not Avai lable Not Available Petey 10/29 () 1 mg-20 mcg tablet Take 1 tab po qd, skip placebo and continue active pills active Not Available Not Available No t Available Vitals Date Recorded Body height Body weight Body mass index (BMI) Systolic blood pressure Diastolic blood pressure Provider Name and Address Organization Details Last Updated DateTime 12/03/2015 170.18 cm 98405.38 6412 g 20 kg/m2 112 mm[Hg] 62 mm[Hg] Nikky Gilbert [facility] 6 14:27:58 Date Recorded Body weight Body mass index (BMI) Body height Systolic blood pressure Diastolic blood pressure Provider Name and Address Organization Details Last Updated DateTime 01/12/2016 88459.38 6412 g 20 kg/m2 170.18 cm 100 mm[Hg] 70 mm[Hg] Radha Bhandari [facility] 6 13:34:49 Date Recorded Body height Body mass index (BMI) Body weight Systolic blood pressure Diastolic blood pressure Provider Name and Address Organization Details Last Updated DateTime 02/02/2016 170.18 cm 19.8 kg/m2 54519.35 7094 g 106 mm[Hg] 60 mm[Hg] Nikky Gilbert [facility] 6 11:51:01 Date Recorded Body weight Body height Body mass index (BMI) Systolic blood pressure Diastolic blood pressure Provider Name and Address Organization Details Last Updated DateTime 08/14/2015 78082.12 5372 g 170.18 cm 21.2 kg/m2 110 mm[Hg] 60 mm[Hg] Nikky Gilbert [facility] 5 10:26:33 Date Recorded Body weight Body mass index (BMI) Body height Systolic blood pressure Diastolic blood pressure Provider Name and Address Organization Details Last Updated DateTime 09/15/2015 40777.50 3684 g 20.9 kg/m2 170.18 cm 110 mm[Hg] 68 mm[Hg] Nikky Gilbert [facility] 5 13:34:39 Social History Question Answer Notes LastModified by Clipmarks Details LastModified Time Tobacco Smoking Status Current Some Day Smoker Ting andujar [facility] 02/02/2016 11:44:57 What Type Of Diet Are You Following? REGULAR Information not available 06/27/2015 Which Illicit Or Recreational Drugs Have You Used? Mar Information not available 06/27/2015 Have You Ever Had Violence Or Abuse Directed At You? No Information not available 06/27/2015 If Former Smoker, How Many Pack Years? NA Information not available 06/27/2015 Marital Status Informatio n not available 06/27/2015 Seat Belts Used Routinely Yes Information not available 06/27/2015 Are You Sexually Active? Yes Information not available 06/27/2015 How Much Tobacco Do You Smoke? No Information not available 06/27/2015 How Many Years Have You Smoked Tobacco? 0 Information not available 06/27/2015 Sex: Unknown Functional Status Question Answer Note LastModified by Clipmarks Details LastModified Time What is your level of alcohol consumption? 1-2 A Year Information not available 06/27/2015 What is your occupation? Unemployed Information not available 06/27/2015 Mental Status None recorded. Family History Relationship Description Onset Age of this Age Resolved Age Notes LastModified by Organization Details LastModified Time Mother Carcinoma of breast 52 59 [email or web address] Not available 2014 16:12:16 Mother Malignant tumor of breast 51 60 [email or web address] Not available 2015 11:41:39 Mother Osteoporosis 50 [email or web address] Not avai lable 02/02/2016 11:51:27 Mother Problem 32 [email or web address] Not available 02/02/2016 11:51:27 Father Malignant neoplasm of lung 60 smoker [email or web address] Not available 2015 11:51:27 Father Heart disease 40 59 3 stents [email or web address] Not available 02/02/2016 11:41:39 Father Hyperlipidem ia [email or web address] Not available 2015 11:51:27 Maternal Grandmother Alzheimer's disease 50 Not available 2015 11:51:27 Maternal Grandmother Disorder of thyroid gland [email or web address] Not available 2015 11:51:27 Notes:([facility] In [facility]) Colon ca distant aunts No family hx of ovarian ca Medical History Condition Response Diabetes N Other N Thyroid Disease Y High Blood Pressure N Lung Disorder or Asthma Y Hyperlipidemia Y Cancer N Kidney or Bladder Problems Y Anemia or Blood Disorder Y Cardiac Disease N GI Disorders Y Neurologic Disease Y None Reported N Psychiatric Disease Y Osteoporosis Y Thrombophilias N Gynecological History Statement/Question Response Menstrual Problems Date of Last Colonoscopy 2012 Sexual Activity Yes Flow Menopause Y Date of LMP 06/10/2012 Date of Last Mammogram 2014 Menstrual Regularity HPV Vaccine No Duration of Flow (days) Hysterectomy 12 18 Date of Last Bone Density Test Never Sexual Dysfunction Decreased Libido Current control method Vasectomy Abnormal Pap ASCUS +HPV Hysterectomy Other APPLICATOR SPRAYER Conditions Endometriosis Infertility N Date of Last Pap 2013 STD History Obstetrics History GPAL:G 4 P 0 0 1 3 Type Value Induced 1 Living 3 Total 4 Immunizations Vaccine Type Date Status Note Provider Nam e and Address Organization Details Recorded Time Tdap 07/24/2007 completed YOSVANY Mar[facility]illa [facility] 08/26/2015 14:53:58 tetanus toxoid, adsorbed 08/08/2013 completed YOSVANY Maravilla [facility] 08/26/2015 14:53:58 Past Encounters Encounter ID Performer Location Encounter Start Date Encounter Closed Date Diagnosis/Indication Diagnosis SNOMED-CT Code Diagnosis ICD10 Code Diagnosis Note [id number] Keith Osuna MD [place] [facility] [address] [place] [id number] 07/02/2015 14:51:11 07/06/2015 14:04:45 Ovarian remnant syndrome 484076274 Large bowel adhesions 655207258 [id number] Keith Osuna MD [place] [facility] [address] [place] [id number] 08/14/2015 10:12:32 08/18/2015 15:15:09 Urinary tract infectious disease 06475766 N39.0 Spasm of back muscles 20 2613116 M62.830 Postmenopausal state 764 89994 Z78.0 [id number] Keith Osuna MD [place] [facility] [address] [place] [id number] 09/15/2015 13:23:48 10/09/2015 13:37:42 Spasm of pelvic muscles around vagina 148776503 N94.2 [id number] Keith Osuna MD [place] [facility] [address] [place] [id number] 12/03/2015 14:17:14 12/11/2015 10:23:42 Nausea present 894194463 R11.0 [id number] Keith Osuna MD [place] [facility] [address] [place] [id number] 01/12/2016 12:12:21 01/16/2016 14:38:52 Left sided abdominal pain 095867135 R10.9 [id number] Keith Osuna MD [place] [facility] [address] [place] [id number] 02/02/2016 11:32:06 02/05/2016 10:11:20 Postoperative visit 436635259 Z09 Health Concerns Section Related Observation LastModified by Organization Detai ls LastModified Time None Recorded Concern Status LastModified by Organization Details LastModified Time None Recorded Advance Directives Directive None Recorded Payers Insurance Date Sequence Insurance Name Policy Number Policy Melara Covered Member ID Melara Member ID Guarantor Name 07/02/2015 1 *SELF PAY* Ronald Humphries 01/30/2016 1 [facility] [employer] - HEALTH NET PLAN (MEDICAID HMO) [id number] Monserrat L Yandel [id number] Monserrat Rodarte Humphries OBGyn Episode Ob Episode Information Episode Created Date Number of Fetuses Patient Bloodtype Patient rh Status Prepregnancy Weight lbs Domestic Partner Domestic Partner Phone Father Name Head Automatic Sawyer Status 06/27/20 15 1 CLOSED Fetus Data First Name Last Name Admitted to NICU Weight (g) Sex Living Outcome Pediatric Complications Fetus ID Race Codes Race Delivery Type 4309.12 4 M [id number] Vaginal (85125) Pantera Calculation Initial Pantera Date Initial Exam Date Initial Exam Provider Initial Ultrasound Date Last Menstrual Period Date Ultra Sound Weeks Gestation 0 Eighteen To Twenty Week Pantera Update Ultra Sound Date Fundal Height At Umbil Quickening Date Ultra Sound Latest Weeks Gestation Final Pantera Confirmed By Final Pantera Confirmed Date Final Pantera Date Ultra Sound Latest Days Gestation 0 0 Menstrual History Last Menstrual Date Menses Monthly On Bcp Conception Prior Menses Frequency Hcg Plus Date Menarche Onset Age Delivery Information Delivery Date Delivery Type Labor Anesthesia Weeks Gestation Incision Type Labor Labor Length Hrs Delivered By Post Complications Tubal Sterilization Discharge Date Comments 3 Discharge Information Feeding Method Contraceptive Method Maternal HG B and HCT Levels Ob Episode Information Episode Created Date Number of Fetuses Patient Bloodtype Patient rh Status Prepregnancy Weight lbs Domestic Partner Domestic Partner Phone Father Name Head Automatic Sawyer Status 06/27/20 15 1 CLOSED Fetus Data First Name Last Name Admitted to NICU Weight (g) Sex Living Outcome Pediatric Complications Fetus ID Race Codes Race Delivery Type 4450.87 15 M [id number] Cesarian ([id number]) Pantera Calculation Initial Pantera Date Initial Exam Date Initial Exam Provider Initial Ultrasound Date Last Menstrual Period Date Ultra Sound Weeks Gestation 0 Eighteen To Twenty Week Pantera Update Ultra Sound Date Fundal Height At Umbil Quickening Date Ultra Sound Latest Weeks Gestation Final Pantera Confirmed By Final Pantera Confirmed Date Final Pantera Date Ultra Sound Latest Days Gestation 0 0 Menstrual History Last Menstrual Date Menses Monthly On Bcp Conception Prior Menses Frequency Hcg Plus Date Menarche Onset Age Delivery Information Delivery Date Delivery Type Labor Anesthesia Weeks Gestation Incision Type Labor Labor Length Hrs Delivered By Post Complications Tubal Sterilization Discharge Date Comments 1 Discharge Information Feeding Method Contraceptive Method Maternal HG B and HCT Levels Ob Episode Information Episode Created Date Number of Fetuses Patient Bloodtype Patient rh Status Prepregnancy Weight lbs Domestic Partner Domestic Partner Phone Father Name Head Automatic Sawyer Status 06/27/20 15 1 CLOSED Fetus Data First Name Last Name Admitted to NICU Weight (g) Sex Living Outcome Pediatric Complications Fetus ID Race Codes Race Delivery Type 3827.18 25 M [id number] Vaginal ([id number]) Pantera Calculation Initial Pantera Date Initial Exam Date Initial Exam Provider Initial Ultrasound Date Last Menstrual Period Date Ultra Sound Weeks Gestation 0 Eighteen To Twenty Week Pantera Update Ultra Sound Date Fundal Height At Umbil Quickening Date Ultra Sound Latest Weeks Gestation Final Pantera Confirmed By Final Pantera Confirmed Date Final Pantera Date Ultra Sound Latest Days Gestation 0 0 Menstrual History Last Menstrual Date Menses Monthly On Bcp Conception Prior Menses Frequency Hcg Plus Date Menarche Onset Age Delivery Information Delivery Date Delivery Type Labor Anesthesia Weeks Gestation Incision Type Labor Labor Length Hrs Delivered By Post Complications Tubal Sterilization Discharge Date Comments 1 Discharge Information Feeding Method Contraceptive Method Maternal HG B and HCT Levels
== END 2025-04-01 13:00 | disposition home or self-care (01) ==
LOC: HO.HGI 12:22
PROVIDERS: PCP Physician Assistant Medical; Visit Provider Internal Medicine Gastroenterology
DX: R13.10 Dysphagia, unspecified (principal)
CPT/HCPCS: 99213